=== PATIENT | female | born 1970 ===

== ENCOUNTER 2016-08-24 10:43 | Day surgery (SDC) | payer OTHER ==
--- NOTE | 2016-08-23 13:46 | GHP ---
[f rep st] PREOP HISTORY AND PHYSICAL She will be an outpatient on Monday, August 24, 2015. PROBLEM: Status post left total knee arthroplasty with postoperative stiffness. HISTORY OF PRESENT ILLNESS: The patient is a 46-year-old woman on whom I did a left total knee arthr oplasty on June 27, 2016. She has failed to regain adequate flexion. She is admitted for closed manipulation of her left knee under general anesthesia. PAST MEDICAL HISTORY: She is treated for hypothyroidism. Otherwise, she is in good health. CURRENT MEDICATIONS: Synthroid. She takes vitamin supplements. DRUG ALLERGIES: Sulfa caused a rash. Latex allergy: None. PHYSICAL EXAMINATION: LUNGS: Clear. HEART: Regular rhythm. No murmurs. EXTREMITIES: Pertinent f indings limited to her left knee. Her wound is healed. She has mild swelling. Full extension and 9 5 degrees of flexion. Her collateral ligaments are stable. IMPRESSION ON ADMISSION: 1. Status post left total knee arthroplasty with postoperative stiffness and failure to regain adequ ate flexion. 2. Treatment for hypothyroidism. For more details of her history and physical, please refer to her H and P dictated for June 27 016 surgery. She will undergo closed manipulation. The surgery has been described to her and to her tray escalante the risks, complications, expectations, and recovery time. I have talked to her about the risk of fracture or rupture of the ligaments and tendons from the manipulation. I have also advised her t hat she will have to continue with aggressive postoperative physical therapy. All her questions have been answered and she consents to surgery. /[id number]/MODL
[2016-08-24] MEDS ORDERED: LR 1,000 ML IV ONE (11:02)
[2016-08-24] MEDS ORDERED: LIDOCAINE 1% 5 ML SDV ID PRN (11:02)
[2016-08-24] MEDS ORDERED: MIDAZOLAM 2 MG/2 ML VIAL ONE (12:44)
[2016-08-24] MEDS ORDERED: PROPOFOL/EMULSION 500 MG/50 ML BOTTLE IV ONE (12:44)
[2016-08-24] MEDS ORDERED: LIDOCAINE 2% 5 ML SDV ONE (12:49)
[2016-08-24] MEDS ORDERED: BUPIVACAINE 0.5% 30 ML SDV ONE (12:54)
[2016-08-24] MEDS ORDERED: fentaNYL 100 MCG/2 ML INJ ONE (13:18)
[2016-08-24] MEDS ORDERED: OXYCODONE/APAP 5/325 TAB ONE ×2 (13:40→14:18)
--- NOTE | 2016-08-24 13:49 | GOP ---
[f rep st] OPERATIVE REPORT DATE OF OPERATION: 08/24/2016 SURGEON: Dony Castro MD [employer] SPECIALIST: Jake Rodriguez PA-C ANESTHESIA: General. ANESTHESIOLOGIST: Chong Espinoza MD PREOPERATIVE DIAGNOSIS: Status post left total knee arthroplasty with postoperative stiffness. POSTOPERATIVE DIAGNOSIS: Status post left total knee arthroplasty with postoperative stiffness. PROCEDURE PERFORMED: Closed manipulation of left total knee arthroplasty. FINDINGS: DESCRIPTION OF PROCEDURE: The patient was placed supine on her [facility] in the operating room and given general anesthesia by Dr. Espinoza. When she was fully anesthetized, I manipulated her left knee. She had full extension and flexed to about 95 degrees. I applied steady flexion pressure to t he tibia while simultaneously trying to translate the proximal tibia posteriorly. At about 100 degre es, I felt some resistance. With further pressure, I could feel the adhesions rupturing, and I was a ble to flex the knee back to 135 degrees. At the completion of the procedure, she had full extension and flex just by gravity to 130 degrees. Her collateral ligaments were stable. Her patellar tendon and quadriceps tendon felt intact. The lateral aspect of the knee was prepped with ChloraPrep. I injected 30 cc of 0.5% Marcaine with e pinephrine. The knee was wrapped with an Jaya bandage. She was awakened from anesthesia and taken on her gurney to the PACU. There were no intraoperative complications. /[id number]/MODL
== END 2016-08-24 14:30 | disposition home or self-care (01) ==
LOC: FSGY 10:43
PROVIDERS: ATTEND Orthopaedic Surgery
PROC: 0SNDXZZ Release Left Knee Joint, External Approach (ICD-10-PCS; principal; 2016-08-24 12:30)
DX: T84.82XA Fibrosis due to internal orthopedic prosthetic devices, implants and grafts, initial encounter (principal); Z96.652 Presence of left artificial knee joint; E03.9 Hypothyroidism, unspecified
CPT/HCPCS: J2250; J2704; J3010